=== PATIENT | female | born 1990 | race Two or more races ===

== ENCOUNTER → 2023-12-04 14:39 | Outpatient (CLI) | payer OTHER ==
[~2023-12-04 14:39] MED LIST: DICLEGIS DR 101 EACH PO; PRENATABS RX T1 EACH
== END | disposition home or self-care (01) ==
LOC: PRENATAL 14:39
PROVIDERS: ATTEND Obstetrics & Gynecology Maternal & Fetal Medicine
DX: O26.849 Uterine size-date discrepancy, unspecified trimester (principal); O36.8199 Decreased fetal movements, unspecified trimester, other fetus; O40.1XX0 Polyhydramnios, first trimester, not applicable or unspecified; Z3A.36 36 weeks gestation of pregnancy

== ENCOUNTER 2023-12-13 16:20 | Inpatient (IN) | payer OTHER ==
[~2023-12-13] VITALS: Ht 154.9 cm; Wt 3.6 kg
[2023-12-13 16:25] VITALS: BP 119/73
[2023-12-13] MEDS ORDERED: RINGERS SOLUTION,LACTATED 1,000 ML IV SCH ×2 (17:00→22:30)
[2023-12-13 17:22] LABS: HEMATOCRIT 30.9 % (36.0-45.00); HEMOGLOBIN 10.5 g/dL (12.0-15.00); MEAN CELL VOLUME 80.1 fL (80.00-100.00); MEAN CORPUSCULAR HEMOGLOBIN 27.1 pg (27.00-32.0); MEAN CORPUSCULAR HGB CONC 33.9 g/dl (32.0-36.0); PLATELET COUNT 151 K/uL (150-450); RED BLOOD COUNT 3.86 M/uL (4.00-6.00); RED CELL DISTRIBUTION WIDTH 14.6 % (11.5-14.5)
[2023-12-13 17:23] LABS: URINE APPEARANCE Clear; URINE BILIRRUBIN Negative (NEGATIVE); URINE BLOOD Negative; URINE COLOR Yellow; URINE GLUCOSE Negative (NEGATIVE); URINE KETONE 15 (NEGATIVE); URINE LEUKOCYTE Trace; URINE NITRATE Negative; URINE PROTEIN Negative (NEGATIVE); URINE UROBILINOGEN 0.2 E.U./dl
[2023-12-13 17:26] LABS: URINE BACTERIA 1427.4 uL (0.0-1933); URINE RBC 14.9 uL (0.0-20.8); URINE WBC 31.8 uL (0.0-23.2)
[2023-12-13 17:29] LABS: URINE CAST 0.45 uL (0.0-1.40)
[2023-12-13 17:43] LABS: INR < 0.93; PARTIAL THROMBOPLASTIN TIME 26.3 SECONDS (22.0-34.0)
[2023-12-13] MEDS ORDERED: ECOTRIN81 MG PO (18:07)
[2023-12-13] MEDS ORDERED: FOLIC ACID20 MG PO (18:08)
[2023-12-13] MEDS ORDERED: MORPHINE SULFATE 4 MG/ML VIAL IV ONE ×2 (21:25→21:55)
[2023-12-13] MEDS ORDERED: SUGAMMADEX SODIUM 200 MG/2 ML VIAL IV ONE (22:00)
[2023-12-13] MEDS ORDERED: ERYTHROMYCIN BASE OPHT 1GM EACH TUBE OP ONE (22:00)
[2023-12-13] MEDS ORDERED: CEFAZOLIN SODIUM 1,000 MG VIAL IV ONE (22:00)
[2023-12-13] MEDS ORDERED: OXYTOCIN 20 UNITS/1000ML RL PIGGYBAG IV ONE (22:00)
[2023-12-13] MEDS ORDERED: KETOROLAC TROMETHAMINE 60 MG VIAL IM STA (22:18)
[2023-12-13] MEDS ORDERED: MEPERIDINE HCL/PF 50 MG/ML VIAL IM PRN (22:30)
[2023-12-13] MEDS ORDERED: CHLORHEXIDINE GLUCONATE 120 ML BOTTLE TOP SCH (22:30)
[2023-12-13] MEDS ORDERED: OXYTOCIN 1,000 ML IV SCH (22:30)
[2023-12-13] MEDS ORDERED: PROMETHAZINE HCL 25 MG/ML AMPUL IM PRN (22:30)
[2023-12-14] VITALS: BP 113/70
[2023-12-14] MEDS ORDERED: CEFAZOLIN SODIUM 1,000 MG VIAL IV SCH
[2023-12-14 03:43] LABS: HEMATOCRIT 26.6 % (36.0-45.00); MEAN CELL VOLUME 81.6 fL (80.00-100.00); MEAN CORPUSCULAR HEMOGLOBIN 27.5 pg (27.00-32.0); MEAN CORPUSCULAR HGB CONC 33.8 g/dl (32.0-36.0); PLATELET COUNT 144 K/uL (150-450); RED BLOOD COUNT 3.26 M/uL (4.00-6.00); RED CELL DISTRIBUTION WIDTH 14.4 % (11.5-14.5)
[2023-12-14 08:00] VITALS: BP 101/68
[2023-12-14] MEDS ORDERED: OxyCODONE HCL/APAP UD (PERCOCET) PO PRN (09:00)
[2023-12-14 16:00] VITALS: BP 109/68
[2023-12-15 02:08] VITALS: BP 100/56
[2023-12-15 08:53] VITALS: BP 104/61
[2023-12-15 16:00] VITALS: BP 101/63
[2023-12-15 20:00] VITALS: BP 113/75
[2023-12-16 02:22] VITALS: BP 104/65
[2023-12-16 08:00] VITALS: BP 113/74
[2023-12-16] MEDS ORDERED: BISACODYL 10 MG/SUPP.RECT SUPP.RECT RECTAL STA (12:12)
== END 2023-12-16 14:09 | disposition home or self-care (01) | DRG 785 ==
LOC: OB/GYN 16:20 → LDR 16:20 → O/R 21:50 → OB/GYN 23:22
PROVIDERS: ADMIT Obstetrics & Gynecology; ATTEND Obstetrics & Gynecology
PROC: 0UB70ZZ Excision of Bilateral Fallopian Tubes, Open Approach (ICD-10-PCS; 2023-12-13)
PROC: 4A1HXCZ Monitoring of Products of Conception, Cardiac Rate, External Approach (ICD-10-PCS; 2023-12-13)
PROC: 0DNW0ZZ Release Peritoneum, Open Approach (ICD-10-PCS; 2023-12-13)
PROC: 10D00Z1 Extraction of Products of Conception, Low, Open Approach (ICD-10-PCS; principal; 2023-12-13 21:00)
DX: O34.211 Maternal care for low transverse scar from previous cesarean delivery (principal); O99.892 Other specified diseases and conditions complicating childbirth; N73.6 Female pelvic peritoneal adhesions (postinfective); Z30.2 Encounter for sterilization; Z37.0 Single live birth; Z20.822 Contact with and (suspected) exposure to COVID-19; Z3A.37 37 weeks gestation of pregnancy